=== PATIENT | female | born 1975 | race Caucasian/White ===

== ENCOUNTER 2016-09-19 07:01 | Emergency (ER) | payer OTHER ==
[2016-09-19 08:12] VITALS: BP 128/79; PULSE 69; TEMP 98; BMI 37.0
[2016-09-19] MEDS ORDERED: KETOROLAC TROMETHAMINE 60 MG/2 ML VIAL ONE (08:30)
[2016-09-19] MEDS ORDERED: diazePAM 5 MG TABLET ONE (08:30)
--- NOTE | 2016-09-19 08:30 | PDOC ---
History of Present Illness - General Chief Complaint: Back Pain Stated Complaint: BACK PAIN Time Seen by Provider: 09/19/16 08:18 History Source: Patient - History of Present Illness Occurred: reports: yesterday Severity: reports: severe Pain Location: reports: back Past History - Past Medical History Allergies/Adverse Reactions: Allergies Allergy/AdvReac Type Severity Reaction Status Date / Time No Known Allergies Allergy Verified 09/19/16 07:20 Home Medications: Ambulatory Orders Cyclobenzaprine HCl [Flexeril 10 mg] 10 mg PO TID PRN #9 tablet 09/19/16 Ibuprofen [Motrin -] 800 mg PO Q6H #30 tablet 09/19/16 Tramadol HCl 50 mg PO Q6H #15 tablet MDD 200 mg 09/19/16 Psychiatric Problems: Yes (DEPRESSION) - Psycho/Social/Smoking Cessation Hx Suicidal Ideation: No Smoking History: Never smoked Information on smoking cessation initiated: No Review of Systems - Review of Systems Constitutional: No: Chills, Fever ABD/GI: No: Nausea, Vomiting, Abdominal cramping : No: Dysuria, Flank Pain, Hematuria Neurological: No: Numbness, Tingling, Weakness *Physical Exam - Vital Signs Last Vital Signs Temp Pulse Resp BP Pulse Ox 98 F 69 18 128/79 98 09/19/16 07:17 09/19/16 07:17 09/19/16 07:17 09/19/16 07:17 09/19/16 07:17 - Physical Exam General Appearance: Yes: Appropriately Dressed, Moderate Distress HEENT: positive: Normal Voice Neck: positive: Supple Respiratory/Chest: negative: Respiratory Distress Gastrointestinal/Abdominal: positive: Soft. negative: Tender Musculoskeletal: positive: Normal Inspection. negative: CVA Tenderness, Vertebral Tenderness Extremity: positive: Normal Inspection Integumentary: positive: Dry, Warm Neurologic: positive: Fully Oriented, Alert, Normal Mood/Affect, Motor Strength 5/5 Medical Decision Making - Medical Decision Making 09/19/16 08:30 09/19/16 08:30 41-year-old obesed female, denies any past medical history, here with back pain. Patient reports mid lower back pain that started gradually yesterday. Patient states pain radiates to upper spine but not to buttocks or legs, unable to describe pain but states it is constant and worse with any movement. Denies any lower extremity weakness, saddle anesthesia, bowel or bladder incontinence, dysuria, hematuria, nausea, vomiting, fever or chills. No history of kidney stones. Has not taken anything for pain. States she's had back pain in the past but not this severe. Denies any recent trauma. see exam Lower back pain M/l MSK No red flags at this time, i.e cauda equina, infxn or h/o trauma Pt reg uncomfortable and mostly standing in ED due to pain -pain meds -reassess 09/19/16 08:46 09/19/16 09:54 Pt reports significant improvement w/ meds. Has 2+ bld in ua but clinically do not suspect renal stone at this time, given no flank pain, sxs, n/v. Will dc w/ rx for pain meds and encourage PMD f/u if sxs persist 09/19/16 10:07 *DC/Admit/Observation/Transfer Diagnosis at time of Disposition: Low back pain Qualifiers: Chronicity: acute Back pain laterality: midline Sciatica presence: without sciatica Qualified Code(s): M54.5 - Low back pain - Discharge Dispostion Disposition: HOME Condition at time of disposition: Improved - Prescriptions Prescriptions: Cyclobenzaprine HCl [Flexeril 10 mg] 10 mg PO TID PRN #9 tablet PRN Reason: Back Pain Ibuprofen [Motrin -] 800 mg PO Q6H #30 tablet Tramadol HCl 50 mg PO Q6H #15 tablet MDD 200 mg - Referrals Referrals: Kellie Escobar MD [Primary Care Provider] - - Patient Instructions Printed Discharge Instructions: Low Back Pain Additional Instructions: Take medications as prescribed. If pain persists, please follow-up with your primary care physician
[2016-09-19] MEDS ORDERED: diazePAM 5 MG TABLET PO ONE (08:33)
[2016-09-19] MEDS ORDERED: KETOROLAC TROMETHAMINE 60 MG/2 ML VIAL IM ONE (08:33)
[2016-09-19 08:48] LABS: URINE APPEARANCE CLEAR; URINE BILIRUBIN NEGATIVE (NEGATIVE); URINE COLOR LTYELLOW; URINE GLUCOSE (UA) NEGATIVE (NEGATIVE); URINE KETONE NEGATIVE (NEGATIVE); URINE LEUK ESTERASE NEGATIVE (NEGATIVE); URINE NITRITE NEGATIVE (NEGATIVE); URINE PROTEIN NEGATIVE (NEGATIVE); URINE UROBILINOGEN NEGATIVE E.U./dl (0.2-1.0)
[2016-09-19 08:50] LABS: URINE BLOOD 2+ (NEGATIVE)
[2016-09-19 09:24] LABS: URINE MUCUS RARE; URINE RBC 4 /hpf (0-3); URINE WBC 1 /hpf (3-5)
== END 2016-09-19 10:12 | disposition home or self-care (01) ==
LOC: JER 07:01 → JERFT 07:01
PROC: 3E0233Z Introduction of Anti-inflammatory into Muscle, Percutaneous Approach (ICD-10-PCS; principal; 2016-09-19)
DX: M54.5 Low back pain (principal); F32.9 Major depressive disorder, single episode, unspecified
CPT/HCPCS: 81003; 81015; 84703; 99281-25

== ENCOUNTER 2017-05-31 05:04 | Day surgery (SDC) | payer OTHER ==
[2017-05-28 16:41] VITALS: BMI 32.1
[2017-05-31] MEDS ORDERED: PROMETHAZINE HCL 25 MG/1 ML VIAL IVPB PRN (08:36)
[2017-05-31] MEDS ORDERED: ONDANSETRON 4 MG/2 ML VIAL IVPUSH PRN (08:36)
[2017-05-31] MEDS ORDERED: LACTATED RINGERS SOLUTION 1,000 ML IV SCH (08:45)
[2017-05-31] MEDS ORDERED: PROPOFOL 20 ML ONE ×2 (09:12→09:13)
[2017-05-31] MEDS ORDERED: ROCURONIUM BROMIDE 50 MG/5 ML VIAL ONE (09:12)
[2017-05-31] MEDS ORDERED: MIDAZOLAM HCL 2 MG/2 ML SINGLE DOSE VIAL ONE (09:12)
[2017-05-31] MEDS ORDERED: LIDOCAINE HCL/PF 2% SDV 5ML VIAL ONE (09:24)
[2017-05-31] MEDS ORDERED: SODIUM CHLORIDE 0.9% P/F 10 ML VIAL IJ ONE (09:31)
[2017-05-31] MEDS ORDERED: ceFAZolin SODIUM 1 GM VIAL ONE (09:31)
[2017-05-31] MEDS ORDERED: ceFAZolin SODIUM 1 GM VIAL IVPB ONE (09:32)
[2017-05-31] MEDS ORDERED: DEXAMETHASONE SOD PHOSPHATE 4 MG/1 ML VIAL ONE (09:36)
[2017-05-31] MEDS ORDERED: GLYCOPYRROLATE 0.2 MG/1 ML VIAL ONE (10:09)
[2017-05-31] MEDS ORDERED: NEOSTIGMINE METHYLSULFATE 0.5 MG/ML - 10 ML MDV ONE (10:10)
[2017-05-31] MEDS ORDERED: KETOROLAC TROMETHAMINE 30 MG/1 ML VIAL ONE (10:13)
[2017-05-31] MEDS ORDERED: BUPIVACAINE HCL/PF 0.5% (5MG/ML) 10 ML VIAL IJ ONE (10:20)
[2017-05-31] MEDS ORDERED: ACETAMINOPHEN 325 MG TABLET (FP) PO PRN (10:50)
[2017-05-31] MEDS ORDERED: IBUPROFEN 600 MG TABLET (FP) PO PRN (10:50)
[2017-05-31] MEDS ORDERED: IBUPROFEN 800 MG/8 ML IJ IVPB PRN (10:50)
--- NOTE | 2017-05-31 10:50 | HP ---
History & Physical Update - History History: No Change - Physical Physical: No Change - Assessment Assessment: No Change - Plan Plan: No Change
[2017-05-31 12:31] VITALS: TEMP 97.5
[2017-05-31 15:00] VITALS: BP 116/66; PULSE 51
--- NOTE | 2017-06-02 09:01 | OP ---
Operative Note - Note: Operative Date: 05/31/17 Pre-Operative Diagnosis: Left ovarian cyst. embedded IUD. voluntary sterilization Operation: Laparoscopic bilateral salpingectomy. Laparoscopic left ovarian cystectomy. hysteroscopic iud removal. Suction DC Post-Operative Diagnosis: Same as Pre-op Surgeon: Gertrude Ramos Horse Racing Analyst: Rene Coffey Anesthesia: General Estimated Blood Loss (mls): 5 Operative Report Dictated: Yes
--- NOTE | 2017-06-02 09:33 | OP ---
DATE OF OPERATION: 05/31/2017 PREOPERATIVE DIAGNOSES: Left ovarian cyst, embedded intrauterine device, and voluntary sterilization. POSTOPERATIVE DIAGNOSES: Left ovarian cyst, embedded intrauterine device, and voluntary sterilization. OPERATION: Laparoscopic bilateral salpingectomy, laparoscopic left ovarian cystectomy, hysteroscopic intrauterine device removal, and suction dilatation and curettage. FINDINGS: Left ovarian cyst, approximately 4 cm in size; normal tubes and ovaries; and an embedded IUD. SURGEON: Francine Mclean MD SPECIAL EFFECTS PERSON: BRITTANEY Buchanan ANESTHESIA: General. ANESTHESIOLOGIST: Xiao Marshall MD ESTIMATED BLOOD LOSS: 5 mL DESCRIPTION OF PROCEDURE: Patient was taken to the operating room, placed in dorsal lithotomy position, prepped and draped in the usual sterile fashion. A timeout was performed in accordance with hospital regulations. Page catheter was inserted into the bladder. Attention was then drawn to the umbilicus where a 5-mm umbilical incision was made. Veress needle was inserted into the cavity. Approximately 3-4 L of CO2 was insufflated in the cavity. Veress needle was then removed, and a 5-mm trocar was then inserted. Laparoscope and camera attached. Visualization revealed normal fallopian tubes, normal uterus, and a left 4-cm ovarian cyst. Trocars were inserted on the left and right side under direct visualization. A 5-mm trocar was inserted. After, scalpel was then used to make an incision. The LigaSure was then attached. A grasper was then used to grab the left tube, and coagulation and cutting of the fallopian tube were then done. Tube was removed and submitted to Pathology. The same procedure was repeated on the right side where tube was grasped, and LigaSure was then used to remove the right tube using coagulation and cutting of the fallopian tube. Attention was then drawn to the left ovarian cyst where a spatula was then used to enter the cyst. Grasper was then used to remove the cyst wall and submitted to Pathology. Coagulation of the ovary was then done. Hemostasis was achieved. A thorough visualization revealed normal anatomy. The instruments were then removed. CO2 was then removed from the cavity. Incisions were then closed using 0 Biosyn suture in continuous subcuticular stitch. Attention was then drawn to the vagina where a speculum was placed in the vagina. Anterior lip of the cervix grasped with single-tooth tenaculum. Cervix was then dilated to accommodate the operative scope. The IUD was seen embedded with numerous adhesions. Grasper was then used to grab the string of the IUD and remove the IUD. Suction D&C was then performed. Specimen was submitted to Pathology. Hemostasis achieved. All instruments then removed. Patient had tolerated the procedure well. Estimated blood loss: 5 mL. FRANCINE MCLEAN M.D. GIANA/[id number]
--- NOTE | 2017-06-06 09:47 | PATH ---
Surgical Pathology Report Patient Name: MARISSA WOODS [facility]. Rec. #: [id number] /Age/Gender: 1975 (Age: 41) / F Account: [id number] Location: [facility] SURGICAL Taken: 05/31/2017 Received: 05/31/2017 Reported: 06/06/2017 Physicians: Gertrude Ramos M.D. Specimen(s) Received A: CYST WALL LEFT OVARY B: RIGHT FALLOPIAN TUBE C: LEFT FALLOPIAN TUBE D: IUD E: SUCTION D&C Clinical History Embedded IUD, voluntary sterilization Final Diagnosis A. OVARY, LEFT, CYST WALL, EXCISION: FRAGMENTS OF FIBROMEMBRANOUS TISSUE AND FIBROUS STROMA CONSISTENT WITH FOLLICULAR CYST WALL IN HEMORRHAGIC BACKGROUND. PORTION OF CAUTERIZED FALLOPIAN TUBE FIMBRIA. B. FALLOPIAN TUBE, RIGHT, EXCISION: FULL LUMINAL PORTION OF UNREMARKABLE FALLOPIAN TUBE. C. FALLOPIAN TUBE, LEFT, EXCISION: FULL LUMINAL PORTION OF UNREMARKABLE FALLOPIAN TUBE. D. INTRAUTERINE DEVICE (IUD), REMOVAL: INTRAUTERINE DEVICE. MACROSCOPIC DIAGNOSIS E. UTERUS, SUCTION DILATATION AND CURETTAGE: LATE PROLIFERATIVE TO EARLY SECRETORY ENDOMETRIUM Electronically Signed Selene Vogt M.D. Gross Description A. Received in formalin labeled "cyst wall left ovary," is a 1.2 x 0.7 x 0.2 cm aggregate of harley-brown soft tissue fragments, possibly consistent with portions of a cyst. The specimen is entirely submitted in one cassette. B. Received in formalin labeled "right tube," is a 6 cm in length fimbriated fallopian tube. The outer surface is harley mccauley and smooth. Sectioning reveals an unremarkable lumen. Chemical Weigher sections are submitted in 2 cassettes as follows: 1-fimbria; 3-aqagl-ygxfiftf of fallopian tube. C. Received in formalin labeled "left tube," is a 6 cm in length fimbriated fallopian tube. The outer surface is harley-ayon and smooth. Sectioning reveals an unremarkable lumen. Chemical Weigher sections are submitted in 2 cassettes as follows: 1-fimbria; 2-cross sections of fallopian tube. D. Received fresh labeled "IUD," is a 3.5 cm in length T-shaped device, consistent with an IUD. The specimen has an attached white string. No soft tissue is present. No sections are submitted, gross only. E. Received in formalin labeled "suction D&C," is a 3.2 x 2.5 x 0.3 cm aggregate of harley-brown soft tissue fragments. The formalin is filtered and the specimen is entirely submitted in 2 cassettes. [id number]/[id number]
== END 2017-05-31 14:00 | disposition home or self-care (01) ==
LOC: JASU-SURG 05:04
PROVIDERS: ATTEND Obstetrics & Gynecology
PROC: 0UDB8ZZ Extraction of Endometrium, Via Natural or Artificial Opening Endoscopic (ICD-10-PCS; 2017-05-31)
PROC: 0UB14ZZ Excision of Left Ovary, Percutaneous Endoscopic Approach (ICD-10-PCS; principal; 2017-05-31 09:00)
PROC: 0U574ZZ Destruction of Bilateral Fallopian Tubes, Percutaneous Endoscopic Approach (ICD-10-PCS; 2017-05-31 09:00)
PROC: 0UC98ZZ Extirpation of Matter from Uterus, Via Natural or Artificial Opening Endoscopic (ICD-10-PCS; 2017-05-31 09:00)
DX: N83.202 Unspecified ovarian cyst, left side (principal); Z30.432 Encounter for removal of intrauterine contraceptive device; Z30.2 Encounter for sterilization
CPT/HCPCS: 84703; 88300-TC; 88302-TC; 88304-TC; 88305-TC; 94760

== ENCOUNTER 2018-04-17 21:21 | Emergency (ER) | payer OTHER ==
[2018-04-17 21:40] VITALS: TEMP 98.4; BMI 37.5
--- NOTE | 2018-04-17 21:41 | PDOC ---
Rapid Medical Evaluation Time Seen by Provider: 04/17/18 21:36 Medical Evaluation: Allergies Allergy/AdvReac Type Severity Reaction Status Date / Time No Known Allergies Allergy Verified 04/17/18 21:37 04/17/18 21:38 04/17/18 21:33 04/17/18 19:49 I have performed a brief in-person evaluation of this patient. The patient presents with a chief complaint of: L flank pain x 2 days, no dysuria, n/v/f/c. No h/o kidney stones. No pmhx Pertinent physical exam findings: Diffuse ttp to L flank I have ordered the following:ua/upreg/labs The patient will proceed to the ED for further evaluation
[2018-04-17 22:23] LABS: BASO % 0.3 % (0-2.0); EOS % 1.5 % (0-4.5); HEMATOCRIT 33.2 % (32.4-45.2); HEMOGLOBIN 11.2 GM/dL (10.7-15.3); LYMPH % 42.8 % (8-40); MCH 25.6 pg (25.7-33.7); MCHC 33.8 g/dl (32.0-36.0); MEAN CELL VOLUME 75.5 fl (80-96); MEAN PLT VOLUME 8.7 fl (7.5-11.1); MONO % 5.1 % (3.8-10.2); NEUT % 50.3 % (42.8-82.8); PLATELET COUNT 250 K/MM3 (134-434); RBC 4.39 M/mm3 (3.60-5.2); RDW 16.3 % (11.6-15.6); WHITE BLOOD COUNT 7.2 K/mm3 (4.0-10.0)
[2018-04-17 22:41] LABS: ALBUMIN 3.6 g/dl (3.4-5.0); ALK PHOS 106 U/L (45-117); ANION GAP 8 MMOL/L (8-16); BILIRUBIN,TOTAL 0.2 mg/dL (0.2-1); BLOOD UREA NITROGEN 12 mg/dL (7-18); CALCIUM 8.4 mg/dL (8.5-10.1); CHLORIDE 104 mmol/L (98-107); CO2 27 mmol/L (21-32); CREATININE 0.8 mg/dL (0.55-1.3); GLUCOSE,RANDOM 90 mg/dL (74-106); LIPASE 146 U/L (73-393); POTASSIUM 3.7 mmol/L (3.5-5.1); SGOT/AST 22 U/L (15-37); SGPT/ALT 23 U/L (13-61); SODIUM 139 mmol/L (136-145); TOT PROT 8.4 g/dl (6.4-8.2)
[2018-04-17 23:02] LABS: URINE APPEARANCE CLEAR; URINE BILIRUBIN NEGATIVE (<2.0 mg/dL); URINE COLOR LTYELLOW; URINE GLUCOSE (UA) NEGATIVE (NEGATIVE); URINE KETONE NEGATIVE (NEGATIVE); URINE LEUK ESTERASE NEGATIVE (NEGATIVE); URINE NITRITE NEGATIVE (NEGATIVE); URINE PROTEIN NEGATIVE (NEGATIVE); URINE UROBILINOGEN NEGATIVE mg/dL (0.2-1.0)
[2018-04-17 23:03] LABS: HCG,QUALITATIVE URINE Negative
[2018-04-17] MEDS ORDERED: KETOROLAC TROMETHAMINE 30 MG/1 ML VIAL IM ONE (23:26)
[2018-04-17] MEDS ORDERED: KETOROLAC TROMETHAMINE 30 MG/1 ML VIAL ONE (23:44)
--- NOTE | 2018-04-18 00:51 | PDOC ---
History of Present Illness - General Chief Complaint: Pain, Acute Stated Complaint: ABD PAIN Time Seen by Provider: 04/17/18 21:36 History Source: Patient Exam Limitations: No Limitations Past History - Past Medical History Allergies/Adverse Reactions: Allergies Allergy/AdvReac Type Severity Reaction Status Date / Time No Known Allergies Allergy Verified 04/17/18 21:37 Home Medications: Ambulatory Orders Escitalopram Oxalate [Lexapro -] 10 mg PO DAILY 05/28/17 Multivitamin [One Daily] 1 each PO DAILY 05/28/17 clonazePAM [Klonopin -] 0.5 mg PO PRN PRN 05/28/17 Ibuprofen [Motrin -] 600 mg PO QID #28 tablet 05/31/17 Simethicone [Gas Relief] 80 mg PO Q6H #20 tab.chew 04/18/18 COPD: No GI Disorders: Yes (GASTRITIS) Psychiatric Problems: Yes (DEPRESSION) - Suicide/Smoking/Psychosocial Hx Smoking History: Never smoked Have you smoked in the past 12 months: No Hx Alcohol Use: No Drug/Substance Use Hx: No Substance Use Type: Alcohol Hx Substance Use Treatment: No *Physical Exam - Vital Signs Last Vital Signs Temp Pulse Resp BP Pulse Ox 98.4 F 66 20 129/93 99 04/17/18 21:37 04/17/18 21:37 04/17/18 21:37 04/17/18 21:37 04/17/18 21:37 - Physical Exam General Appearance: No: Apparent Distress Respiratory/Chest: positive: Lungs Clear, Normal Breath Sounds. negative: Respiratory Distress Cardiovascular: positive: Regular Rhythm, Regular Rate, S1, S2. negative: Murmur Gastrointestinal/Abdominal: positive: Normal Bowel Sounds, Soft. negative: Tender, Distended, Guarding, Rebound, Tenderness, Mass Musculoskeletal: negative: CVA Tenderness Neurologic: positive: Fully Oriented, Alert, Normal Mood/Affect Moderate Sedation - Procedure Monitoring Vital Signs: Procedure Monitoring Vital Signs Temperature 98.4 F 04/17/18 21:37 Pulse Rate 66 04/17/18 21:37 Respiratory Rate 20 04/17/18 21:37 Blood Pressure 129/93 04/17/18 21:37 O2 Sat by Pulse Oximetry (%) 99 04/17/18 21:37 ED Treatment Course - LABORATORY CBC & Chemistry Diagram: 04/17/18 22:15 04/17/18 22:15 - ADDITIONAL ORDERS Additional order review: Laboratory Results 04/17/18 04/17/18 22:36 22:15 Sodium 139 Potassium 3.7 Chloride 104 Carbon Dioxide 27 Anion Gap 8 BUN 12 Creatinine 0.8 Creat Clearance w eGFR > 60 Random Glucose 90 Calcium 8.4 L Total Bilirubin 0.2 AST 22 ALT 23 Alkaline Phosphatase 106 Total Protein 8.4 H Albumin 3.6 Lipase 146 Urine Color Ltyellow Urine Appearance Clear Urine pH 6.0 Ur Specific [place] 1.025 Urine Protein Negative Urine Glucose (UA) Negative Urine Ketones Negative Urine Blood Negative Urine Nitrite Negative Urine Bilirubin Negative Urine Urobilinogen Negative Ur Leukocyte Esterase Negative Urine HCG, Qual Negative 04/17/18 22:15 RBC 4.39 MCV 75.5 L MCHC 33.8 RDW 16.3 H MPV 8.7 Neutrophils % 50.3 Lymphocytes % 42.8 H Monocytes % 5.1 Eosinophils % 1.5 Basophils % 0.3 - Medications Given in the ED: ED Medications Discontinued Medications Generic Name Dose Route Start Last Admin Trade Name Geovani PRN Reason Stop Dose Admin Ketorolac Tromethamine 30 mg 04/17/18 23:26 04/17/18 23:53 Toradol Injection - IM 04/17/18 23:27 30 mg ONCE ONE Administration Medical Decision Making - Medical Decision Making 42 y/o F hx of L ovarian cystectomy and B/L salpingectomy 05/2017 presents with L flank pain radiating to LUQ and LLQ from yesterday, worsening today. Has tried taking Tylenol without much relief in pain. Denies trauma. Denies fever, sob, cp, n/v/d, hematuria, dysuria, urinary urgency/frequency, unusual vaginal discharge. Denies having this type of pain before PE unremarkable with no abdominal or CVA tenderness Labs reviewed and unremarkable. UA negative Patient was given Toradol and then reassessed, feeling better Less suspicious for kidney stones given how comfortable patient appears; unlikely UTI or pyelo Possible MSK pain? (patient mentions feeling it after lifting laundry load) Advised f/u with PCP; stable for d/c 04/18/18 00:45 *DC/Admit/Observation/Transfer Diagnosis at time of Disposition: Left flank pain - Discharge Dispostion Disposition: HOME Condition at time of disposition: Improved Decision to Admit order: No - Prescriptions Prescriptions: Simethicone [Gas Relief] 80 mg PO Q6H #20 tab.chew - Referrals - Patient Instructions Printed Discharge Instructions: DI for Flank Pain Additional Instructions: Thank you for choosing [facility]. It was a pleasure taking care of you. Your pain could possibly be musculoskeletal in nature. You may take Motrin 600 mg every 4 hours by mouth as needed for mild to moderate pain. Take Motrin with food. Please follow-up with your primary care doctor in 2-3 days Return to the Emergency Department if your symptoms worsen or persist, you have fever, shortness of breath, chest pain, severe abdominal pain, vomiting, blood in urine or other concerning symptoms. - Post Discharge Activity
[2018-04-18 01:01] VITALS: BP 124/78; PULSE 78
--- NOTE | 2018-04-18 01:27 | PDOC ---
*Physical Exam - Vital Signs Last Vital Signs Temp Pulse Resp BP Pulse Ox 98.4 F 78 18 124/78 99 04/17/18 21:37 04/18/18 01:00 04/18/18 01:00 04/18/18 01:00 04/18/18 01:00 ED Treatment Course - LABORATORY CBC & Chemistry Diagram: 04/17/18 22:15 04/17/18 22:15 - ADDITIONAL ORDERS Additional order review: Laboratory Results 04/17/18 04/17/18 22:36 22:15 Sodium 139 Potassium 3.7 Chloride 104 Carbon Dioxide 27 Anion Gap 8 BUN 12 Creatinine 0.8 Creat Clearance w eGFR > 60 Random Glucose 90 Calcium 8.4 L Total Bilirubin 0.2 AST 22 ALT 23 Alkaline Phosphatase 106 Total Protein 8.4 H Albumin 3.6 Lipase 146 Urine Color Ltyellow Urine Appearance Clear Urine pH 6.0 Ur Specific [place] 1.025 Urine Protein Negative Urine Glucose (UA) Negative Urine Ketones Negative Urine Blood Negative Urine Nitrite Negative Urine Bilirubin Negative Urine Urobilinogen Negative Ur Leukocyte Esterase Negative Urine HCG, Qual Negative 04/17/18 22:15 RBC 4.39 MCV 75.5 L MCHC 33.8 RDW 16.3 H MPV 8.7 Neutrophils % 50.3 Lymphocytes % 42.8 H Monocytes % 5.1 Eosinophils % 1.5 Basophils % 0.3 - Medications Given in the ED: ED Medications Discontinued Medications Generic Name Dose Route Start Last Admin Trade Name Freq PRN Reason Stop Dose Admin Ketorolac Tromethamine 30 mg 04/17/18 23:26 04/17/18 23:53 Toradol Injection - IM 04/17/18 23:27 30 mg ONCE ONE Administration Medical Decision Making - Medical Decision Making 04/18/18 01:26 42F with onset of L chest wall px, high on chest wall, anterior axillary line triggered after lifting a load of laundry likely msk px analgesia agree with a/p *DC/Admit/Observation/Transfer Diagnosis at time of Disposition: Left flank pain - Discharge Dispostion Disposition: HOME Condition at time of disposition: Improved - Referrals - Patient Instructions Printed Discharge Instructions: DI for Flank Pain Additional Instructions: Thank you for choosing [facility]. It was a pleasure taking care of you. Your pain could possibly be musculoskeletal in nature. You may take Motrin 600 mg every 4 hours by mouth as needed for mild to moderate pain. Take Motrin with food. Please follow-up with your primary care doctor in 2-3 days Return to the Emergency Department if your symptoms worsen or persist, you have fever, shortness of breath, chest pain, severe abdominal pain, vomiting, blood in urine or other concerning symptoms. - Post Discharge Activity
== END 2018-04-18 01:01 | disposition home or self-care (01) ==
LOC: JER 21:21
PROC: 3E0233Z Introduction of Anti-inflammatory into Muscle, Percutaneous Approach (ICD-10-PCS; principal; 2018-04-17)
DX: R10.32 Left lower quadrant pain (principal); F32.9 Major depressive disorder, single episode, unspecified; K52.9 Noninfective gastroenteritis and colitis, unspecified
CPT/HCPCS: 36415; 80053; 81003; 83690; 84703; 85025; 87491; 87591; 99282-25

== ENCOUNTER 2019-11-24 06:05 | Day surgery (SDC) | payer OTHER ==
[2019-11-21 13:22] VITALS: BMI 38.2
[~2019-11-24 06:05] MED LIST: CEFAZOLIN 2 GM in DEXTROSE 5%-WATER - 100 ML IVPB ONE; PHENAZOPYRIDINE HCL 100 MG TABLET (FP) PO ONE
[2019-11-24] MEDS ORDERED: PHENAZOPYRIDINE HCL 100 MG TABLET (FP) ONE (06:44)
[2019-11-24] MEDS ORDERED: ceFAZolin SODIUM 1 GM VIAL ONE (06:44)
[2019-11-24] MEDS ORDERED: PHENAZOPYRIDINE HCL 100 MG TABLET (FP) PO ONE (07:00)
[2019-11-24] MEDS ORDERED: CEFAZOLIN 2 GM/D5W 2 GM/50 ML ML IVPB ONE (07:00)
[2019-11-24] MEDS ORDERED: ROCURONIUM BROMIDE 50 MG/5 ML SYRINGE ONE ×2 (07:24→09:06)
[2019-11-24] MEDS ORDERED: fentaNYL CITRATE 250 MCG/5 ML VIAL ONE (07:25)
[2019-11-24] MEDS ORDERED: PROPOFOL 20 ML ONE ×2 (07:25)
[2019-11-24] MEDS ORDERED: SUCCINYLCHOLINE CHLORIDE 200 MG/10 ML SYRINGE ONE (07:25)
[2019-11-24] MEDS ORDERED: MIDAZOLAM HCL 2 MG/2 ML SINGLE DOSE VIAL ONE ×3 (07:25→07:29)
[2019-11-24] MEDS ORDERED: ROPIVACAINE HCL 0.5% 30ML VIAL ONE (07:28)
--- NOTE | 2019-11-24 07:42 | HP ---
History & Physical Update - History History: No Change - Physical Physical: No Change - Assessment Assessment: No Change - Plan Plan: No Change (No change in HP)
--- NOTE | 2019-11-24 07:45 | HP ---
Satellite PMH - Chief Complaint Chief Complaint: Dysmenorrhea. Leiomyomatous uterus History of Present Illness: 44 yo with co leiomyomatous uterus for robotic hysterectomy History Source: Patient Limitations to Obtaining History: No Limitations - Past Medical History Allergies/Adverse Reactions: Allergies Allergy/AdvReac Type Severity Reaction Status Date / Time No Known Allergies Allergy Verified 11/24/19 06:37 ...LMP: 04/07/18 ...: No - Current Medications Current Medications: Home Medications Medication Instructions Recorded Aspirin 81 mg PO DAILY 11/21/19 Clonazepam [Klonopin] 1 mg PO PRN PRN 11/21/19 Escitalopram Oxalate [Lexapro -] 10 mg PO DAILY 11/21/19 Satellite Physical Exam - Physical Examination Vital Signs: Vital Signs Period Temp Pulse Resp BP Sys/Cole Pulse Ox Last 24 Hr 97.5 F-97.5 F 61-61 20-20 130-130/94-94 99-99 General Appearance: Well Nourished, Well Developed ENT: Clear Lung: Clear to auscultation Heart: Regular rate & rhythm Pelvic Exam: Within normal limits External Genitalia, Within normal limits Vagina, Within normal limits Cervix, Within normal limits [place], Other Uterus Neurological: Intact, Alert, Oriented Satellite Impression/Plan - Impression/Plan Impression: Dysmenorrhea. Leiomyomatous uterus Operative Procedure: robotic laparoscopic hysterectomy. bilateral salpingectomy Date to be Performed: 11/24/19
[2019-11-24] MEDS ORDERED: DESFLURANE GAS 240 ML BOTTLE IH ONE (08:06)
[2019-11-24] MEDS ORDERED: ceFAZolin SODIUM 1 GM VIAL IVPB ONE (08:10)
[2019-11-24] MEDS ORDERED: NEOSTIGMINE METHYLSULFATE 0.5 MG/ML - 10 ML MDV ONE (10:02)
[2019-11-24] MEDS ORDERED: BISACODYL 5 MG TABLET.DR (FP) PO PRN (10:43)
[2019-11-24] MEDS ORDERED: oxyCODONE HCL 5 MG TABLET PO PRN ×2 (10:43)
[2019-11-24] MEDS ORDERED: DOCUSATE SODIUM 100 MG CAPSULE (FP) PO PRN (10:43)
[2019-11-24] MEDS ORDERED: ONDANSETRON 4 MG/2 ML VIAL IVPUSH PRN (10:45)
--- NOTE | 2019-11-24 10:50 | OP ---
Operative Note - Note: Operative Date: 11/24/19 Pre-Operative Diagnosis: dysmenorrhea, leimyomatous uterus Operation: robotic assisted laparoscopic hysterectomy Surgeon: Gertrude Ramos Deal Architect: Kristen Alvarado Anesthesiologist/SAIL REPAIRER: Dainel Cowart Anesthesia: General Estimated Blood Loss (mls): 25 Drains, Volume Out (mls): 375 Fluid Volume Replaced (mls): 1,000 Operative Report Dictated: Yes
[2019-11-24] MEDS: ONDANSETRON 4 MG/2 ML VIAL IVPUSH PRN ×2 (11:10→20:22)
[2019-11-24] MEDS: LACTATED RINGERS SOLUTION 1,000 ML IV SCH (13:00)
[2019-11-24] MEDS: IBUPROFEN 800 MG/8 ML IJ IVPB PRN ×2 (14:27→21:43)
[2019-11-24] MEDS ORDERED: clonazePAM 0.5 MG TABLET PO PRN (14:35)
--- NOTE | 2019-11-24 14:39 | SURG ---
Surgery Measurement Advisor Note Measurement Advisor: Kristen Alvarado PA-C Date of Service: 11/24/19 Diagnosis: dysmenorrhea, leimyomatous uterus Procedure: robotic assisted laparoscopic hysterectomy I was present for the entirety of the operative procedure. For further detail, please refer to operative report. Visit type - Case Type Case Type: Scheduled - Emergency Emergency Visit: No - New patient This patient is new to me today: Yes Date on this admission: 11/24/19
[2019-11-24] MEDS ORDERED: CEFAZOLIN 1 GM/D5W 1 GM/50 ML BAG IVPB SCH ×2 (16:00→17:08)
[2019-11-24] MEDS: CEFAZOLIN 1 GM/D5W 1 GM/50 ML BAG IVPB SCH (17:14)
[2019-11-24 19:28] LABS: HEMATOCRIT 32.8 % (32.4-45.2); HEMOGLOBIN 10.5 GM/dL (10.7-15.3); MCH 24.9 pg (25.7-33.7); MEAN CELL VOLUME 77.7 fl (80-96); MEAN PLT VOLUME 8.6 fl (7.5-11.1); PLATELET COUNT 172 K/MM3 (134-434); RBC 4.23 M/mm3 (3.60-5.2); RDW 15.5 % (11.6-15.6); WHITE BLOOD COUNT 7.1 K/mm3 (4.0-10.0)
[2019-11-24 19:58] LABS: BLOOD UREA NITROGEN 13.6 mg/dL (7-18); CALCIUM 9.2 mg/dL (8.5-10.1); CREATININE 0.8 mg/dL (0.55-1.3); POTASSIUM 5.2 mmol/L (3.5-5.1)
[2019-11-25] MEDS: CEFAZOLIN 1 GM/D5W 1 GM/50 ML BAG IVPB SCH (01:00)
[2019-11-25] MEDS: ACETAMINOPHEN 325 MG TABLET (FP) PO PRN ×2 (02:00→08:12)
[2019-11-25] MEDS: SIMETHICONE 80 MG TAB.CHEW (FP) PO PRN ×2 (02:01→08:12)
[2019-11-25] MEDS: LACTATED RINGERS SOLUTION 1,000 ML IV SCH ×2 (02:02→10:52)
--- NOTE | 2019-11-25 07:46 | PN ---
Progress Note (short form) - Note Progress Note: Surgery POD #1 robotic assisted laparoscopic hysterectomy patient seen and examined at bedside. Patient slightly bradycardic overnight, however asymptomatic and patient's baseline HR is on the lower end @ 60BPM. She is tolerating her diet, voiding and passing flatus. She denies any CP, SOB, N/V fever or chills. Vital Signs Temp 98.0 F 11/25/19 06:00 Pulse 44 L 11/25/19 06:00 Resp 18 11/25/19 06:00 BP 99/54 L 11/25/19 06:00 Pulse Ox 97 11/25/19 06:00 Intake & Output 11/24/19 11/24/19 11/25/19 11:59 23:59 11:59 Intake Total 3269 249 9386 Output Total 400 1700 900 Balance 600 -825 200 Intake: IV 1000 575 800 Lactated Ringers Solution 575 800 1,000 ml @ 125 mls/hr IV ASDIR ZARA Rx#: [id number] IVPB 300 300 Output: Urine 375 1700 900 Page 1000 500 Void 600 400 Estimated Blood Loss 25 Other: Voiding Method Indwelling Catheter Toilet Bowel Movement No No 11/25/19 07:45 11/25/19 07:45 PE: A&Ox3, NAD Unlabored resp on RA ABd: soft, ND with mild TTP at incision sites. dressings c/d/i with surrounding tissue intact and no tracking erythema or evidence of active d/s. B/L LE compartments soft, supple and non-tender with + pulses Problem List - Problems (1) Status post laparoscopic hysterectomy Assessment/Plan: POD #1 robotic assisted lap hysterectomy doing well. -advance to regular diet -encourage OOB as tolerated -encourage IS -DVT prophylaxis -Pain control -d/c home later today Evaluation and plan discussed with Dr Ramos Code(s): Z90.710 - ACQUIRED ABSENCE OF BOTH CERVIX AND UTERUS
[2019-11-25 08:27] LABS: HEMATOCRIT 32.6 % (32.4-45.2); HEMOGLOBIN 10.5 GM/dL (10.7-15.3); MCH 25.1 pg (25.7-33.7); MCHC 32.1 g/dl (32.0-36.0); MEAN CELL VOLUME 78.4 fl (80-96); MEAN PLT VOLUME 9.4 fl (7.5-11.1); PLATELET COUNT 81 K/MM3 (134-434); RBC 4.16 M/mm3 (3.60-5.2); RDW 15.3 % (11.6-15.6); WHITE BLOOD COUNT 7.8 K/mm3 (4.0-10.0)
[2019-11-25 09:04] LABS: BLOOD UREA NITROGEN 10.4 mg/dL (7-18); CALCIUM 8.8 mg/dL (8.5-10.1); CREATININE 0.8 mg/dL (0.55-1.3); POTASSIUM 3.8 mmol/L (3.5-5.1)
[2019-11-25 09:52] VITALS: BP 103/64; PULSE 57; TEMP 98.1
[2019-11-25] MEDS ORDERED: ENOXAPARIN NA (PORCINE) 40 MG/0.4 ML DISP.SYRIN SQ SCH (10:00)
[2019-11-25] MEDS ORDERED: ESCITALOPRAM OXALATE 10 MG TABLET PO SCH (10:00)
--- NOTE | 2019-11-25 19:34 | OP ---
DATE OF OPERATION: 11/24/2019 PREOPERATIVE DIAGNOSIS: Dysmenorrhea, pelvic pain, leiomyomatous uterus. OPERATION: Total laparoscopic robotic hysterectomy. POSTOPERATIVE DIAGNOSIS: Dysmenorrhea, pelvic pain, leiomyomatous uterus. SURGEON: Gertrude Ramos MD. COMPUTER APPLICATION DEVELOPER: BRITTANEY Jeffrey. unavailable. ANESTHESIA: General. PROCEDURE: Patient was taken to the operating room, placed in dorsal lithotomy position. Prepped and draped in usual sterile fashion. Timeout was performed in accordance with hospital regulation. Speculum is placed in the vagina. Anterior lip of the cervix was grasped with single-toothed tenaculum. Cervix then dilated to accommodate the uterine manipulator. Uterine manipulator was placed and snugged tightly against the cervix. A Page catheter was then inserted. Attention was then drawn to the umbilicus where an 8-mm umbilical incision was made. Veress needle was inserted through the cavity, approximately 3-4 L of CO2 was then insufflated in the cavity. Veress needle was then removed, and an 8-mm trocar was then inserted. Two trocars were placed on the left, on the upper abdomen, 1 parallel to the umbilicus, and 2 trocars were placed on the right side parallel to the umbilicus 10 cm apart. Trocars were inserted under direct visualization. Vessel Sealer was inserted. A 5-mm incision was made, and Vessel Sealer was administered in the upper abdomen on the left. Da Prem robot was then side docked to the patient's arm, and the trocars were then inserted onto the Da Prem robot. The instruments were then placed. The tenaculum was placed in arm 4, 3 was the Endoshears, arm 2 was the camera, and arm 1 was the Vessel Sealer. After instruments had been secured in the abdomen and trocars burped up, attention was then drawn to the console. Control with console was then done for the procedure portion of the procedure was done . The tenaculum was then used to elevate the uterus to the left side. The uteroovarian ligament was identified, clamped and cut. The uterine artery was then clamped and cut. Vesicouterine reflection was then entered and bladder was bluntly dissected out of the operative field. Cardinal ligament identified and clamped and cut, and Endoshears were then used to enter the vagina. The same procedure was repeated on the right side. The tenaculum then moved the uterus to the left side, and uteroovarian ligament was identified, clamped and cut. The uterine artery was then clamped and cut. Cardinal ligament identified and clamped and cut down to the level of the cervix. Vesicouterine reflection was then dissected down, and the Endoshears were then used to cut the vagina away from the cervix. The uterus and the cervix were then removed. The 2-0 V-Loc suture was introduced, and the Da Prem robot was then used to close the vagina in a continuous fashion. Hemostasis was achieved. Ureter was identified and both bilaterally found to have peristalsis. The needle was removed through arm 1, and hemostasis was achieved. Irrigation and suction done. Estimated blood loss was about 25 mL. All instruments then removed. Incisions then closed using 4-0 Biosyn suture in a continuous fashion. Wound was washed and dressed. Patient tolerated procedure well and was taken to recovery in stable condition. Kaylin [id number] / [id number]
--- NOTE | 2019-11-27 15:59 | PATH ---
Surgical Pathology Report Patient Name: [facility]. Rec. #: [id number] /Age/Gender: 1975 (Age: 44) / F Account: [id number] Location: AMBULATORY SURG Taken: 11/24/2019 Received: 11/24/2019 Reported: 11/27/2019 Physicians: Gertrude Ramos M.D. Specimen(s) Received CERVIX AND UTERUS Clinical History Dysmenorrhea, fibroids, pelvic pain Final Diagnosis CERVIX AND UTERUS, ROBOTIC LAPAROSCOPIC TOTAL HYSTERECTOMY: UTERUS SHOWING PROLIFERATIVE ENDOMETRIUM AND LEIOMYOMATA (WEIGHT: 127 G). CERVIX WITH NO PATHOLOGIC FINDINGS. Electronically Signed Jaye Perez M.D. Gross Description Received in formalin labeled "cervix and uterus," is a 127 g uterus with an attached cervix and no attached adnexa. The specimen measures 9 cm from superior to inferior, 6.5 cm from left to right and 5 cm from anterior to posterior. The serosa is harley-ayon and smooth. The cervix measures 3 cm in length and 2.6 cm in diameter. The endometrial cavity measures 4 cm in length and 2 cm from cornu to cornu. The endometrium is harley-brown and averages 0.1 cm in thickness. The myometrium displays multiple intramural nodules, measuring up to 1.8 cm in greatest dimension. The cut surface of the nodules is harley and rubbery with whorled architecture. No areas of hemorrhage or necrosis are identified. The remaining myometrium is harley-pink and averages 2.4 cm in thickness. Building Economist sections are submitted in 8 cassettes as follows: 1-anterior cervix; 2-posterior cervix; 5-1-jabzsozl endomyometrium; 5-5-qmqpmglqv endomyometrium; 7-intramural nodules; 8-largest intramural nodule. DL/11/25/2019 saudi/11/25/2019
== END 2019-11-25 13:50 | disposition home or self-care (01) ==
LOC: JASUSAT 06:05 → J3W 13:16 → JASUSAT 11-25 13:50
PROVIDERS: ATTEND Obstetrics & Gynecology
PROC: 8E0W4CZ Robotic Assisted Procedure of Trunk Region, Percutaneous Endoscopic Approach (ICD-10-PCS; 2019-11-24)
PROC: 0UT94ZZ Resection of Uterus, Percutaneous Endoscopic Approach (ICD-10-PCS; principal; 2019-11-24 07:30)
DX: D25.9 Leiomyoma of uterus, unspecified (principal); N94.6 Dysmenorrhea, unspecified; R10.2 Pelvic and perineal pain
CPT/HCPCS: 58570; S2900; 36415; 80048; 81025; 85027; 86850; 86900; 86901; 88307-TC; 94010; 94760